=== PATIENT | female | born 1950 | race Caucasian/White ===

== ENCOUNTER 2022-08-29 08:07 | Outpatient (RCR) | payer MEDICARE, OTHER, BC, SELFPAY | END 2022-10-04 16:00 | disposition home or self-care (01) | LOC: HO.WCC 08:07 | PROVIDERS: PCP Internal Medicine; Visit Provider Physician Assistant | DX: S91.011D Laceration without foreign body, right ankle, subsequent encounter (principal); I10 Essential (primary) hypertension; I25.10 Atherosclerotic heart disease of native coronary artery without angina pectoris; Z87.891 Personal history of nicotine dependence; Z92.21 Personal history of antineoplastic chemotherapy; Z87.2 Personal history of diseases of the skin and subcutaneous tissue; X58.XXXD Exposure to other specified factors, subsequent encounter | CPT/HCPCS: 11042; 97597; 99212 ==